=== PATIENT | male | born 1945 | race Caucasian/White ===

== ENCOUNTER → 2018-07-02 | Outpatient (CLI) | payer MEDICARE | END | disposition home or self-care (01) | LOC: PCVCCLINIC 15:11 | PROVIDERS: ATTEND Internal Medicine Cardiovascular Disease | DX: E78.00 Pure hypercholesterolemia, unspecified (principal); R06.02 Shortness of breath; R00.2 Palpitations; R07.9 Chest pain, unspecified; R06.09 Other forms of dyspnea; F10.10 Alcohol abuse, uncomplicated; Z79.899 Other long term (current) drug therapy; Z87.891 Personal history of nicotine dependence | CPT/HCPCS: 36415; 93005; G0463 ==

== ENCOUNTER → 2018-07-23 | Outpatient (CLI) | payer MEDICARE ==
[~2018-07-23] MED LIST: REGADENOSON 0.4 MG/5 ML DISP.SYRIN. IV ONE
--- NOTE | 2018-07-23 10:07 | PCVCIMAG ---
APPROVED REPORT Study performed: 07/23/2018 07:55:53 EXAM: Comprehensive 2D, Doppler, and color-flow Echocardiogram Patient Location: Echo lab Status: routine BSA: 2.20 HR: 67 bpmBP: 126/72 mmHg Rhythm: NSR Other Information Study Quality: Adequate Indications Dyspnea Palpitations Chest Pain 2D Dimensions IVSd: 11.94 (7-11mm) LVDd: 51.07 mm PWd: 10.97 (7-11mm) LVDs: 38.44 (25-40mm) Left Atrium: 38.27 (27-40mm) Aortic Root: 32.45 mm LV Single Plane 4CH: 57.76 % LV Single Plane 2CH: 54.12 % Biplane EF: 55.9 % Volumes Left Atrial Volume (Systole) Single Plane 4CH: 63.53 mLSingle Plane 2CH: 108.04 mL LA ESV Index: 38.00 mL/m2 Aortic Valve AoV Peak Rick.: 1.30 m/s AO Peak Gr.: 6.80 mmHgLVOT Max P.60 mmHg LVOT Max V: 0.81 m/s Mitral Valve E/A Ratio: 0.5 MV Decel. Time: 341.97 ms MV E Max Rick.: 0.45 m/s MV A Rick.: 0.89 m/s IVRT: 145.33 ms Pulmonary Valve PV Peak Rick.: 0.89 m/sPV Peak Gr.: 3.14 mmHg Pulmonary Vein P Vein S: 0.32 m/sP Vein A: 0.64 m/s P Vein D: 0.46 m/sP Vein A Dur.: 141.9 msec P Vein S/D Ratio: 0.70 Tricuspid Valve TR Peak Rick.: 2.23 m/s TR Peak Gr.: 19.97 mmHg Left Ventricle The left ventricle is normal size. There is normal LV segmental wall motion. Borderline concentric left ventricular hypertrophy. Left ventricular systolic function is normal. The left ventricular ejection fraction is within the normal range. LVEF is 55-60%. Grade I - abnormal relaxation pattern. Right Ventricle The right ventricle is normal size. The right ventricular systolic function is normal. Atria Left atrium is mildly dilated. The right atrium size is normal. Aortic Valve The aortic valve is normal in structure. No aortic regurgitation is present. There is no aortic valvular stenosis. Mitral Valve The mitral valve is normal in structure. Trace mitral regurgitation. No evidence of mitral valve stenosis. Tricuspid Valve The tricuspid valve is normal in structure. Trace tricuspid regurgitation with PAP of 27 mmHg. Pulmonic Valve The pulmonary valve is normal in structure. Mild pulmonic regurgitation. Great Vessels The aortic root is normal in size. IVC is normal in size and collapses >50% with inspiration. Pericardium There is no pericardial effusion. There is no pleural effusion. <Conclusion> The left ventricle is normal size. Borderline concentric left ventricular hypertrophy. Left ventricular systolic function is normal. Grade I - abnormal relaxation pattern. The right ventricle is normal size. Left atrium is mildly dilated. There is no aortic valvular stenosis. Trace mitral regurgitation. Trace tricuspid regurgitation with PAP of 27 mmHg.
--- NOTE | 2018-07-23 13:11 | PCVCIMAG ---
APPROVED REPORT Imaging Protocol: Rest Tc-99m/Stress Tc-99m 1 day Study performed: 07/23/2018 08:58:22 Indication: Chest pain, Dyspnea on Exertion, Irregular Rhythm Patient Location: Out-Patient Stress Nurse: Elvia Woods RN AR Tech:ZEESHAN Howard Ht: 6 ft 4 in Wt: 196 lbs BSA: 2.20 m2 HR: 70 bpm BP: 164/76 mmHg BMI: 23.85 Medical History Medications: Simvastatin, Omeprazole Allergies: No known drug allergies Cardiac Risk Factors: Age, Hyperlipidemia, Tobacco History (Former), GERD Pretest Chest Pain Characteristics: No chest pain Physical Disabilities: Knees Resting Data Rest SPECT myocardial perfusion imaging was performed in supine position 45 minutes following the intravenous injection of 11.6 mCi of Tc-99m Sestamibi. Time of rest injection: 0830 Date: 07/23/2018 Administration Route: IV Administration Site: Right AC Pharmacologic Stress Pharmacologic stress test was performed by injecting Regadenoson 0.4 mg IV push over 10-15 seconds immediately followed by the intravenous injection of 34.6 mCi of Tc-99m Sestamibi. Time of stress injection: 1015 Date: 07/23/2018 Administration Route: IV Administration Site: Right AC Gated Stress SPECT was performed 45 minutes after stress injection. The images were gated to evaluate regional wall motion and calculate left ventricular ejection fraction. Stress Test Details Stress Test: Pharmacologic stress was paired with low level exercise. Reason for pharmacologic stress test: Bilateral knee pain. HRMax Heart Rate (APMHR): 147 bpm Resting HR: 70 bpmTarget HR (85% APMHR): 124 bpm Max HR Achieved: 97 bpm % of APMHR: 65 Recovery HR: 78 bpm BP Resting BP: 164/76 mmHg Recovery BP: 150/78 mmHg ECG Resting ECG: Sinus Rhythm Stress ECG: Sinus Rhythm ST Change: Non-ischemic Arrhythmia: Rare PACs Recovery ECG: Sinus Rhythm Clinical Reason for Termination: Completed protocol Stress Symptoms: Leg Fatigue, Lightheaded Exercise duration: 4 min 00 sec Symptoms resolved during recovery. Study Quality Study: Good Artifact: Mild Diaphragmatic artifact Study Data Post stress, the left ventricular ejection was 66%.. SSS: 2 SRS: 2 SDS: 0 TID = 0.89. Perfusion There is a small area of mildly reduced uptake in the apical segment of the inferior wall which is seen on the stress images as well as the resting images. This area thickens and moves normally and is most consistent with attenuation artifact. Wall Motion Normal left ventricular wall motion. Nuclear Conclusion ECG Findings: negative for ischemia Clinical Findings: non-diagnostic Nuclear Findings: negative for ischemia Exercise Capacity: not assessed Left Ventricular Function: normal Risk Study: low This study is of low probability for inducible ischemia or prior infarct. Normal global and segmental LV systolic function. Artifact: Mild Diaphragmatic artifact
== END | disposition home or self-care (01) ==
LOC: PCVCIMAG 10:20
PROVIDERS: ATTEND Internal Medicine Cardiovascular Disease
DX: I25.10 Atherosclerotic heart disease of native coronary artery without angina pectoris (principal); E78.00 Pure hypercholesterolemia, unspecified; R06.09 Other forms of dyspnea; R00.2 Palpitations; R07.9 Chest pain, unspecified; Z79.899 Other long term (current) drug therapy; Z87.891 Personal history of nicotine dependence
CPT/HCPCS: 78452; 93017; 93306; A9500; G0463; J2785

== ENCOUNTER → 2019-07-29 | Outpatient (CLI) | payer MEDICARE | END | disposition home or self-care (01) | LOC: PCVCCLINIC 10:20 | PROVIDERS: ATTEND Internal Medicine Cardiovascular Disease | DX: I25.10 Atherosclerotic heart disease of native coronary artery without angina pectoris (principal); E78.00 Pure hypercholesterolemia, unspecified; I49.1 Atrial premature depolarization; K21.0 Gastro-esophageal reflux disease with esophagitis; E78.5 Hyperlipidemia, unspecified; Z79.899 Other long term (current) drug therapy; Z87.891 Personal history of nicotine dependence | CPT/HCPCS: 93005; G0463 ==

== ENCOUNTER → 2019-09-23 | Outpatient (CLI) | payer MEDICARE | END | disposition home or self-care (01) | LOC: PCVCCLINIC 08:30 | PROVIDERS: ATTEND Internal Medicine Cardiovascular Disease | DX: I25.10 Atherosclerotic heart disease of native coronary artery without angina pectoris (principal); E78.00 Pure hypercholesterolemia, unspecified; I49.1 Atrial premature depolarization; K21.9 Gastro-esophageal reflux disease without esophagitis; E78.5 Hyperlipidemia, unspecified; Z79.899 Other long term (current) drug therapy; Z87.891 Personal history of nicotine dependence | CPT/HCPCS: 36415 ==